=== PATIENT | male | born 1990 | race Caucasian/White ===

== ENCOUNTER 2018-11-19 16:46 | Emergency (ER) | payer OTHER ==
[2018-11-19] MEDS: TRIMETHOPRIM/SULFAMETHOX (DS) TAB PO (19:08)
[2018-11-19] MEDS: CEPHALEXIN 500 MG CAP PO (19:08)
[2018-11-19] MEDS: HYDROCODONE/APAP (5/325) TAB PO (19:09)
[2018-11-19] MEDS: DIPHTH/TET/ACEL PERTUSS (ADULT) 0.5 ML VIAL IM* (19:10)
[2018-11-19] MEDS: BACITRACIN/POLYMYXIN 28.35 GM OINT TOP (19:41)
[2018-11-19 21:50] LABS: ADD MAN DIFF? NO
[2018-11-19 21:56] LABS: BASOPHILS % 0.4 % (0.0-2.0); EOSINOPHILS # 0.1 10^3/ul (0.0-0.5); EOSINOPHILS % 0.7 % (0.0-7.0); HEMATOCRIT 46.9 % (42.0-52.0); HEMOGLOBIN 15.6 g/dl (14.0-18.0); LYMPHOCYTES % 9.6 % (15.0-51.0); MEAN CORPUSCULAR HGB CONC 33.3 g/dl (32.0-37.0); MEAN CORPUSCULAR VOLUME 84.2 fl (82.0-101.0); MEAN PLATELET VOLUME 10.4 fl (7.4-10.4); MONOCYTE # 0.9 10^3/ul (0.3-0.9); MONOCYTES % 8.2 % (0.0-11.0); NEUTROPHIL # 8.4 10^3/ul (1.6-7.5); NEUTROPHILS % 80.7 % (39.0-77.0); PLATELET COUNT 288 10^3/UL (140-415); RED BLOOD COUNT 5.57 10^6/ul (4.70-6.10); RED CELL DISTRIBUTION WIDTH 14.1 % (11.5-14.5)
[2018-11-19 21:56] LABS: WHITE BLOOD COUNT 10.4 10^3/ul (4.8-10.8)
[2018-11-19 22:11] LABS: ADD UMIC YES; UR ASCORBIC ACID NEGATIVE (NEGATIVE); UR BILIRUBIN (Dip) 1+ mg/dL (NEGATIVE); UR BLOOD (Dip) NEGATIVE (NEGATIVE); UR CLARITY SLIGHTLY CLOUDY (CLEAR); UR COLOR AMBER (YELLOW); UR GLUCOSE (Dip) NEGATIVE (NEGATIVE); UR KETONES (Dip) 2+ mg/dL (NEGATIVE); UR LEUKOCYTE ESTERASE (Dip) NEGATIVE Leu/ul (NEGATIVE); UR MUCUS MANY /HPF (NONE SEEN); UR NITRITE (Dip) NEGATIVE (NEGATIVE); UR RBC 5 /HPF (0-5); UR SPECIFIC GRAVITY (Dip) 1.028 (1.003-1.030); UR TOTAL PROTEIN (Dip) 1+ mg/dl (NEGATIVE); UR UROBILINOGEN (Dip) 1+ mg/dL (NEGATIVE); UR WBC 2 /HPF (0-5)
[2018-11-19 22:12] LABS: ALANINE AMINOTRANSFERASE 28 IU/L (13-69); ALBUMIN 4.7 g/dl (3.3-4.9); ALBUMIN/GLOBULIN RATIO 1.51; ALKALINE PHOSPHATASE 83 IU/L (42-121); ANION GAP 13 (5-13); ASPARTATE AMINO TRANSFERASE 40 IU/L (15-46); BILIRUBIN,INDIRECT 2.5 mg/dl (0-1.1); BILIRUBIN,TOTAL 2.5 mg/dl (0.2-1.3); BLOOD UREA NITROGEN 20 mg/dl (7-20); CALCIUM 10.2 mg/dl (8.4-10.2); CARBON DIOXIDE 24 mmol/L (21-31); CHLORIDE 103 mmol/L (97-110); CREATININE 0.68 mg/dl (0.61-1.24); Estimated GFR > 60 mL/min (>60); GLUCOSE 126 mg/dl (70-220); POTASSIUM 3.5 mmol/L (3.5-5.1); SODIUM 140 mmol/L (135-144); TOTAL PROTEIN 7.8 g/dl (6.1-8.1)
[2018-11-19 22:13] LABS: ACETAMINOPHEN < 10.0 ug/ml (10.0-30.0); ETHANOL < 10.0 mg/dl (0-0); SALICYLATE < 1.0 mg/dl (5.0-30.0)
[2018-11-19 22:22] LABS: BARBITURATES Negative (NEGATIVE); BENZODIAZEPINES Negative (NEGATIVE); CANNABINOIDS Negative (NEGATIVE); COCAINE Negative (NEGATIVE)
[2018-11-19 22:30] LABS: AMPHETAMINE/METHAMPHETAMINE POSITIVE (NEGATIVE); OPIATES Positive (NEGATIVE)
[2018-11-21] MEDS: OLANZAPINE 5 MG TAB PO (09:32)
[2018-11-22] MEDS: ARIPIPRAZOLE 5 MG TAB PO (08:19)
[2018-11-22] MEDS: OLANZAPINE 5 MG TAB PO (08:19)
[2018-11-22] MEDS: ACETAMINOPHEN 500 MG TAB PO (08:33)
[2018-11-22] MEDS: MIRTAZAPINE 15 MG TAB PO (20:53)
[2018-11-23] MEDS: IBUPROFEN 600 MG TAB PO (14:43)
== END 2018-11-23 16:45 ==
LOC: E/R 11-23 16:45 → FTE 16:46
DX: S01.111A Laceration without foreign body of right eyelid and periocular area, initial encounter (principal); R45.851 Suicidal ideations; F17.210 Nicotine dependence, cigarettes, uncomplicated; R40.2142 Coma scale, eyes open, spontaneous, at arrival to emergency department; R40.2252 Coma scale, best verbal response, oriented, at arrival to emergency department; R40.2362 Coma scale, best motor response, obeys commands, at arrival to emergency department; X99.8XXA Assault by other sharp object, initial encounter
CPT/HCPCS: 70450; 70480; 73562; 80053; 80307; 81001; 85025; 90471; 90715; 99285-25